=== PATIENT | female | born 1955 | race Hispanic/Latino ===

== ENCOUNTER 2017-10-29 05:55 | Day surgery (SDC) | payer MEDICAID ==
[~2017-10-29] VITALS: Ht 152.4 cm; Wt 81.4 kg
[~2017-10-29 05:55] MED LIST: CITA-106 PO; DICL100G27 TP; ESOM40CA PO; FURO40TA5 PO; INS7030 SQ; ISOS60TA4 PO; LINA5TAB PO; LISI10TA7 PO; LORA10TA7 PO; METF10004 PO; PRAV40TA3 PO; TRAM50TA4 PO
[2017-10-29] MEDS ORDERED: SODIUM CHLORIDE 0.9% 1000ML 1,000 ML IV ONE (06:23)
[2017-10-29 06:35] VITALS: BP 188/86
[2017-10-29] MEDS ORDERED: LOSA50TA37 PO (07:22)
[2017-10-29] MEDS ORDERED: AMLO5TAB2 PO (07:22)
[2017-10-29] MEDS ORDERED: LEVO50TA11 PO (07:22)
[2017-10-29] MEDS ORDERED: ATOR40TA71 PO (07:22)
[2017-10-29] MEDS ORDERED: BACL10TA PO (07:22)
[2017-10-29] MEDS ORDERED: HYDR25TA PO (07:22)
[2017-10-29] MEDS ORDERED: EMPA1TAB7 PO (07:22)
[2017-10-29] MEDS ORDERED: FOLI0.8T22 PO (07:22)
[2017-10-29] MEDS ORDERED: GABA-531 PO (07:22)
[2017-10-29] MEDS ORDERED: AEC81 PO (07:22)
[2017-10-29] MEDS ORDERED: PROPOFOL 10 MG/ML 20ML VIAL IV ONE ×3 (07:57→08:32)
[2017-10-29 08:38] VITALS: BP 107/53
== END 2017-10-29 09:10 | disposition home or self-care (01) ==
LOC: ENDO 05:55 → DAH 05:55 → ENDO 09:10
PROVIDERS: ATTEND Internal Medicine
DX: D12.2 Benign neoplasm of ascending colon (principal); D12.5 Benign neoplasm of sigmoid colon; K57.30 Diverticulosis of large intestine without perforation or abscess without bleeding; K31.7 Polyp of stomach and duodenum; K29.50 Unspecified chronic gastritis without bleeding; K56.2 Volvulus; K64.8 Other hemorrhoids; Z90.710 Acquired absence of both cervix and uterus; Z90.49 Acquired absence of other specified parts of digestive tract; Z98.890 Other specified postprocedural states; K21.9 Gastro-esophageal reflux disease without esophagitis; Z79.4 Long term (current) use of insulin; Z79.84 Long term (current) use of oral hypoglycemic drugs; Z79.899 Other long term (current) drug therapy; Z68.35 Body mass index [BMI] 35.0-35.9, adult; E78.5 Hyperlipidemia, unspecified; E11.9 Type 2 diabetes mellitus without complications; F41.9 Anxiety disorder, unspecified; F32.9 Major depressive disorder, single episode, unspecified; D64.9 Anemia, unspecified; M19.90 Unspecified osteoarthritis, unspecified site
CPT/HCPCS: 43239; 45385; 82948 ×2; 88305; 88312; A4606; J2704 ×3; J7030

== ENCOUNTER → 2021-01-23 | Outpatient (CLI) | payer OTHER, MEDICARE ==
[~2021-01-23] MED LIST changes: +AEC81 PO; +AMLO-257 PO; +ATOR40TA71 PO; +BACL10TA PO; +EMPA1TAB7 PO; +FOLI0.8T22 PO; +GABA-531 PO; +HYDR25TA PO; -ISOS60TA4 PO; +ISOS60TA77 PO; +LEVO50TA11 PO; +LIDOCAINE HCL 4% LTA SOL 4 ML VIAL TP ONE; +LISI10TA24 PO; -LISI10TA7 PO; +LOSA50TA64 PO; -METF10004 PO; -PRAV40TA3 PO
== END | disposition home or self-care (01) ==
LOC: WHH 12:59
PROVIDERS: ATTEND Family Medicine
DX: I87.312 Chronic venous hypertension (idiopathic) with ulcer of left lower extremity (principal); E11.622 Type 2 diabetes mellitus with other skin ulcer; L97.822 Non-pressure chronic ulcer of other part of left lower leg with fat layer exposed; E11.22 Type 2 diabetes mellitus with diabetic chronic kidney disease; I12.9 Hypertensive chronic kidney disease with stage 1 through stage 4 chronic kidney disease, or unspecified chronic kidney disease; N18.30 Chronic kidney disease, stage 3 unspecified; E11.40 Type 2 diabetes mellitus with diabetic neuropathy, unspecified; K21.9 Gastro-esophageal reflux disease without esophagitis; E78.5 Hyperlipidemia, unspecified; M19.90 Unspecified osteoarthritis, unspecified site; I87.2 Venous insufficiency (chronic) (peripheral); F41.9 Anxiety disorder, unspecified; F32.9 Major depressive disorder, single episode, unspecified; Z68.37 Body mass index [BMI] 37.0-37.9, adult; Z90.710 Acquired absence of both cervix and uterus; Z79.899 Other long term (current) drug therapy; Z79.84 Long term (current) use of oral hypoglycemic drugs; Z90.49 Acquired absence of other specified parts of digestive tract
CPT/HCPCS: 11042; 87070; A4450; A6213; G0463

== ENCOUNTER → 2021-01-30 | Outpatient (CLI) | payer OTHER, MEDICARE | END | disposition home or self-care (01) | LOC: WHH 12:56 | PROVIDERS: ATTEND Family Medicine | DX: I87.312 Chronic venous hypertension (idiopathic) with ulcer of left lower extremity (principal); E11.622 Type 2 diabetes mellitus with other skin ulcer; L97.822 Non-pressure chronic ulcer of other part of left lower leg with fat layer exposed; E11.22 Type 2 diabetes mellitus with diabetic chronic kidney disease; I12.9 Hypertensive chronic kidney disease with stage 1 through stage 4 chronic kidney disease, or unspecified chronic kidney disease; N18.30 Chronic kidney disease, stage 3 unspecified; E11.40 Type 2 diabetes mellitus with diabetic neuropathy, unspecified; K21.9 Gastro-esophageal reflux disease without esophagitis; E78.5 Hyperlipidemia, unspecified; M19.90 Unspecified osteoarthritis, unspecified site; I87.2 Venous insufficiency (chronic) (peripheral); F41.9 Anxiety disorder, unspecified; F32.9 Major depressive disorder, single episode, unspecified; Z68.37 Body mass index [BMI] 37.0-37.9, adult; Z90.710 Acquired absence of both cervix and uterus; Z79.899 Other long term (current) drug therapy; Z79.84 Long term (current) use of oral hypoglycemic drugs; Z90.49 Acquired absence of other specified parts of digestive tract | CPT/HCPCS: 11042; 87070; A6213 ==